=== PATIENT | female | born 1995 | race Caucasian/White ===

== ENCOUNTER 2024-04-03 11:00 | Emergency (ER) | payer MEDICAID, SELFPAY ==
[2024-04-03 11:03] VITALS: BP 120/69; PULSE 77; RESP 12; TEMP 36.7; O2SAT 100; BMI 16.9
[2024-04-03 11:18] VITALS: BP 120/69; RESP 18; O2SAT 100
[2024-04-03 11:33] LABS: Basophils % 0.2 %; Hematocrit 46.7 % (36-47); Lymphocytes # 1.3 10^3/uL (0.8-4.8); Lymphocytes % 11.8 %; Mean Corpuscular HGB Conc 33.2 g/dL (30-55); Mean Corpuscular Hemoglobin 27.8 pg (27-33); Mean Corpuscular Volume 83.7 fl (85-98); Mean Platelet Volume 10.7 fL (7.4-10.4); Monocytes # 0.7 10^3/uL (0.2-0.9); Monocytes % 6.3 %; Neutrophils # 8.78 10^3/uL (1.8-7.7); Neutrophils % 81.4 %; Nucleated Red Blood Cells % 0 %; Platelet Count 194 10^3/cmm (157-399); Red Blood Count 5.58 10^6/uL (3.85-5.65); Red Cell Distribution Width 12.7 % (12.1-15.1); White Blood Count 10.78 10^3/uL (3.29-11.43)
[2024-04-03] MEDS: ondansetron 2 mg/ML SDV 2 mL 4 MG IVP (11:33)
[2024-04-03] MEDS: sodium chloride 0.9% 1,000 ML 999 ML IV (11:33)
--- NOTE | 2024-04-03 11:55 | ED_ITS ---
HPI - Weakness 2 General: Chief complaint: Weakness Stated complaint: chest pain, sunburn Time Seen by Provider: 04/03/24 11:11 History of Present Illness: This patient is a 29-year-old presenting with bodyaches, malaise, nausea and vomiting. She reports that she [place] on the river yesterday and got a severe sunburn. She took some Tylenol last night because of the sunburn pain. She also did not feel very well last night. She thinks that she did not drink enough water yesterday. She denies alcohol or drug use. She is in recovery for 2 years. She denies any other significant medical history such as diabetes. She denies any recent medication changes, no recent trauma. She denies diarrhea. No urinary symptoms. She has irregular menstrual periods and cannot recall the last time she had a cycle. PFSH ED 2 PFSH: Social History Smoking and tobacco/nicotine status: current every day tobacco/nicotine user cigarettes Packs smoked per day: 0.25 Years cigarettes smoked: 12 Quit status (tobacco/nicotine): has tried quititng Number of times tried to quit tobacco: 3 Second hand smoke exposure: No Physical Exam 2 Const: COMMON NORMALS: patient oriented x3, no limitations and alert G ENERAL APPEARANCE: cooperative and other (Uncomfortable); not well hydrated HENMT: HEAD & SCALP: normal to inspection FACE & SINUS: normal facial exam Eye: GENERAL EYE: appearance normal, both eyes and all related structures Neck/C-Spine: COMMON NORMALS: supple, no meningeal signs and no JVD Chest: COMMONS NORMALS: normal inspection of the chest Resp: COMMON NORMALS: normal respiratory effort, No use of accessory muscles and clear to auscultation bilaterally AUSCULTATION: clear to auscultation bilaterally Cardio: COMMON NORMALS: no JVD, regular rate, regular rhythm and No murmurs present (Cardio) RATE: regular rate RHYTHM: regular rhythm GI: COMMON NORMALS: Normal to inspection, nondistended, normoactive bowel sounds present, Soft to palpation and non-tender INSPECTION: Yes normal to inspection AUSCULTATION: Yes normoactive bowel sounds PALPATION: Yes Soft to palpation Back/Pelvis: COMMON NORMALS: thoracic and lumbar spine normal to inspection Extremity: COMMON NORMALS: normal to inspection Neuro: COMMON NORMALS: patient oriented x3, moves all extremities, no focal motor deficits and no sensory deficits noted SENSORIUM/ORIENTATION: Yes alert MENINGEAL SIGNS: Yes no meningeal signs Psych: COMMON NORMALS: mental status grossly normal, cooperative and normal affect Skin: COMMON NORMALS: no rashes or lesions noted and turgor normal N ARRATIVE SKIN EXAM: Sunburn on the shoulders and back, legs, face. No blistering noted GENERAL SKIN EXAM: no rashes or lesions noted and turgor normal Course 2 Vital Signs: Vital signs: Vital Signs Temperature 98.1 F 04/03/24 11:03 Pulse Rate 63 04/03/24 12:13 Respiratory Rate 18 04/03/24 12:13 Blood Pressure 105/80 04/03/24 12:13 Pulse Oximetry 99 04/03/24 12:13 Oxygen Delivery Me thod Room Air 04/03/24 12:13 MDM - Weakness Medical Decision Making Patient with exposure to heat and sun yesterday. She does not think she drink enough water. She has had vomiting today. Potential for heatstroke, less likely rhabdomyolysis. Clinically dehydrated and will give IV fluids. She reports no substance abuse however alcohol and drug screen have been ordered. test also ordered. Will rule out concerning diagnoses and treat symptomatically. Lab Data 04/03/24 11:27 04/03/24 11:27 Laboratory Results WBC 10.78 10^3/uL (3.29-11.43) 04/03/24 11:27 RBC 5.58 10^6/uL (3.85-5.65) 04/03/24 11:27 Hgb 15.50 g/dL (11.27-16.99) 04/03/24 11:27 Hct 46.7 % (36-47) 04/03/24 11:27 MCV 83.7 fl (85-98) L 04/03/24 11:27 MCH 27.8 pg (27-33) 04/03/24 11:27 MCHC 33.2 g/dL (30-55) 04/03/24 11:27 RDW 12.7 % (12.1-15.1) 04/03/24 11:27 Plt Count 194 10^3/cmm (157-399) 04/03/24 11:27 MPV 10.7 fL (7.4-10.4) H 04/03/24 11:27 Neut % (Auto) 81.4 % 04/03/24 11:27 Lymph % (Auto) 11.8 % 04/03/24 11:27 [place] % (Auto) 6.3 % 04/03/24 11:27 Eos % (Auto) 0.0 % 04/03/24 11:27 Baso % (Auto) 0.2 % 04/03/24 11:27 Neut # (Auto) 8.78 10^3/uL (1.8-7.7) H 04/03/24 11:27 Lymph # (Auto) 1.3 10^3/uL (0.8-4.8) 04/03/24 11:27 [place] # (Auto) 0.7 10^3/uL (0.2-0.9) 04/03/24 11:27 Eos # (Auto) 0.0 10^3/uL (0.0-0.8) 04/03/24 11:27 Baso # (Auto) 0.0 10^3/uL (0.0-0.1) 04/03/24 11:27 Nucleated RBC % (auto) 0 % 04/03/24 11:27 Nucleated RBCs # 0.0 /100WBC 04/03/24 11:27 Sodium 137 mmol/L (136-145) 04/03/24 11:27 Potassium 4.5 mmol/L (3.5-5.1) 04/03/24 11:27 Chloride 101 mmol/L (98-107) 04/03/24 11:27 Carbon Dioxide 26 mmol/L (22-29) 04/03/24 11:27 Anion Gap 14.5 (5-19) 04/03/24 11:27 BUN 14 mg/dL (6-20) 04/03/24 11:27 Creatinine 0.7 mg/dL (0.5-0.9) 04/03/24 11:27 GFR Calculation 98.9 mL/min (90-130) 04/03/24 11:27 Glucose 93 mg/dL (65-115) 04/03/24 11:27 Calculated Osmolality 284 mOsm/kg (285-295) L 04/03/24 11:27 Calcium 9.9 mg/dL (8.5-10.5) 04/03/24 11:27 Total Bilirubin 1.1 mg/dL (0.15-1.2) 04/03/24 11:27 AST 26 U/L (0-32) 04/03/24 11:27 ALT 15 U/L (0-33) 04/03/24 11:27 Alkaline Phosphatase 69 U/L (35-105) 04/03/24 11:27 Creatine Kinase 263 U/L (26-192) H 04/03/24 11:27 Total Protein 7.9 g/dL (6.6-8.7) 04/03/24 11:27 Albumin 5.1 g/dL (3.5-5.2) 04/03/24 11:27 Globulin 2.8 g/dL (1.3-4.6) 04/03/24 11:27 Lipase 21 U/L (13-60) 04/03/24 11:27 TSH 0.56 uIU/mL (0.27-4.20) 04/03/24 11:27 HCG, Qual Negative (Negative) 04/03/24 12:45 Urine Color Dark yellow (Yellow) 04/03/24 12:45 Urine Appearance Clear (CLEAR) 04/03/24 12:45 Urine pH 5 (5-7) 04/03/24 12:45 Ur Specific [place] 1.025 (1.005-1.030) 04/03/24 12:45 Urine Protein Trace (Negative) 04/03/24 12:45 Urine Glucose (UA) Norm (Normal) 04/03/24 12:45 Urine Ketones 1+ (Negative) H 04/03/24 12:45 Urine Blood Neg (Negative) 04/03/24 12:45 Urine Nitrate Negative (Negative) 04/03/24 12:45 Urine Bilirubin Neg (Negative) 04/03/24 12:45 Urine Urobilinogen 1 mg/dL (Negative) H 04/03/24 12:45 Ur Leukocyte Esterase Negative (Negative) 04/03/24 12:45 Urine RBC None /hpf (0-2) 04/03/24 12:45 Urine WBC 5-10 /hpf (0-5) H 04/03/24 12:45 Ur Squamous Epith Cells 10-15 /hpf (0-5) H 04/03/24 12:45 Amorphous Sediment Not Reportable 04/03/24 12:45 Urine Bacteria 1+ /hpf (NONE) H 04/03/24 12:45 Urine Mucus 2+ /hpf 04/03/24 12:45 Salicylates < 0.3 mg/dL (3-10) L 04/03/24 11:27 Urine Opiates Screen Negative ng/mL (Negative) 04/03/24 12:45 Acetaminophen < 5.0 ug/mL (10-30) L 04/03/24 11:27 Ur Barbiturates Screen Negative ng/mL (Negative) 04/03/24 12:45 Ur Phencyclidine Scrn Negative ng/mL (Negative) 04/03/24 12:45 Ur Amphetamines Screen Negative ng/mL (Negative) 04/03/24 12:45 U Benzodiazepines Scrn Negative ng/mL (Negative) 04/03/24 12:45 Urine Cocaine Screen Negative ng/mL (Negative) 04/03/24 12:45 U Marijuana (THC) Screen Negative ng/mL (Negative) 04/03/24 12:45 No radiology studies performed this visit Discharge Plan Discharge Patient Disposition: Home Clinical Impression: Dehydration, Sunburn, Heat effect Condition: Stable Prescriptions: No Action buprenorphine-naloxone 2-0.5 mg tablet, sublingual 1 tab sublingual DAILY mirtazapine 15 mg tablet 15 mg PO DAILY clonidine HCl 0.1 mg tablet 0.1 mg PO BID baclofen 10 mg tablet 10 mg PO TID hydroxyzine HCl 50 mg tablet 50 mg PO QID PRN sertraline [Zoloft] 100 mg tablet 100 mg PO DAILY Qty: 30 1RF Rx Instructions: Take 1/2 tab daily for 10 days then start a full tab daily levofloxacin 750 mg tablet 750 mg PO DAILY 7 Days Qty: 7 0RF albuterol sulfate 90 mcg/actuation HFA aerosol inhaler 2 inh inhalation Q4H PRN (Reason: shortness of breath or wheezing) Qty: 8.5 0RF guaifenesin 1,200 mg tablet extended release 12hr 1,200 mg PO BID PRN (Reason: cough) Qty: 30 0RF Discharge Orders: Discharge ED (Routine); Ordered 04/03/24 Ordered By: Almita Thompson Referrals: Azam Rogers FNP [Family Provider] - Patient Instructions: Opioid Safety, Pain Management Activity Restrictions/Additional Instructions: Drink plenty of fluids. Be careful about prolonged heat exposure. Coding Level of Care Code ED Manufacturing Tech for Ana Singletary
[2024-04-03 12:03] LABS: Alanine Aminotransferase 15 U/L (0-33); Albumin Level 5.1 g/dL (3.5-5.2); Alkaline Phosphatase 69 U/L (35-105); Anion Gap 14.5 (5-19); Aspartate Amino Transferase 26 U/L (0-32); Blood Urea Nitrogen 14 mg/dL (6-20); Calcium 9.9 mg/dL (8.5-10.5); Carbon Dioxide 26 mmol/L (22-29); Chloride 101 mmol/L (98-107); Creatine Phosphokinase 263 U/L (26-192); Creatinine Clr Calc Pharmacy 71.3279; Globulin 2.8 g/dL (1.3-4.6); Glomerular Filtration Rate 98.9 mL/min (90-130); Glucose 93 mg/dL (65-115); Lipase 21 U/L (13-60); Osmolality Calculated 284 mOsm/kg (285-295); Potassium 4.5 mmol/L (3.5-5.1); Sodium 137 mmol/L (136-145); Thyroid Stimulating Hormone 0.56 uIU/mL (0.27-4.20); Total Bilirubin 1.1 mg/dL (0.15-1.2); Total Protein 7.9 g/dL (6.6-8.7)
[2024-04-03 12:10] LABS: Acetaminophen < 5.0 ug/mL (10-30); Salicylate < 0.3 mg/dL (3-10)
[2024-04-03 12:13] VITALS: BP 105/80; PULSE 63; RESP 18; O2SAT 99
[2024-04-03 13:14] LABS: Amphetamines Screen Urine Negative (Negative); Barbiturates Screen Urine Negative (Negative); Benzodiazepines Screen Urine Negative (Negative); Cocaine Screen Urine Negative (Negative); Opiate Screen Urine Negative (Negative); PCP Screen Urine Negative (Negative); THC Screen Urine Negative (Negative)
[2024-04-03 13:17] LABS: HCG Qualitative Urine. Negative (Negative)
[2024-04-03 13:26] LABS: Add Urine Microscopic? YES; Bilirubin Urine Neg (Negative); Blood Urine Neg (Negative); Glucose Urine UA Norm (Normal); Ketones Urine 1+ (Negative); Leukocyte Esterase Urine Negative (Negative); Nitrate Urine Negative (Negative); Protein Urine Trace (Negative); Specific Gravity, Urine 1.025 (1.005-1.030); Urine Appearance Clear (CLEAR); Urine Color Dark Yellow (Yellow); Urobilinogen Urine 1 mg/dL (Negative); pH Urine 5 (5-7)
[2024-04-03 13:27] LABS: Add Urine Culture? No; Bacteria Urine 1+ /hpf; Mucus Urine 2+ /hpf
== END 2024-04-03 14:20 | disposition home or self-care (01) ==
PROVIDERS: Emergency Provider Emergency Medicine
DX: E86.0 Dehydration (principal); L55.9 Sunburn, unspecified; T67.9XXA Effect of heat and light, unspecified, initial encounter; X30.XXXA Exposure to excessive natural heat, initial encounter; F17.210 Nicotine dependence, cigarettes, uncomplicated
CPT/HCPCS: 80053; 80306; 80307; 81001; 81025; 82550; 83690; 84443; 85025; 96374; 99284; J2405; J7030

== ENCOUNTER → 2024-05-19 10:30 | Outpatient (BNVA) | payer MEDICAID, SELFPAY | PROVIDERS: Visit Provider Nurse Practitioner Women's Health | DX: Z00.00 Encounter for general adult medical examination without abnormal findings (principal) | CPT/HCPCS: 82306; 83520; 84146; 84439; 84443; 84481; 86850; 86900; 87624 ==

== ENCOUNTER 2025-06-28 16:05 | Emergency (ER) | payer SELFPAY ==
[2025-06-28 16:18] VITALS: BP 106/74; PULSE 82; RESP 16; TEMP 36.8; O2SAT 98
--- NOTE | 2025-06-28 16:20 | ECG_ITS ---
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 Measurements Intervals [place] Rate: 83 P: 87 [place]: 125 QRS: 75 QRSD: 77 T: 65 QT: 401 QTc: 472 Interpretive Statements SINUS RHYTHM RIGHT ATRIAL ENLARGEMENT [0.3mV P-WAVE] NONSPECIFIC T-WAVE ABNORMALITY No previous ECG available for comparison Electronically Signed On 06-28-2025 23:53:43 CDT by Bruce Starr M.D. [id number]
--- NOTE | 2025-06-28 16:39 | PC.NURSE ---
COWS scoring for Opiate Withdrawal: 5 (mild withdrawal). provider notified
--- NOTE | 2025-06-28 17:17 | W.ED.PSYCHS ---
HPI - Psych General: Chief Complaint: Psychiatric Symptoms Stated Complaint: Medication/Detoxs Time Seen by Provider: 06/28/25 16:09 History of Present Illness: 30yo with a chief complaint of withdrawal symptoms. Patient states that she quit her Suboxone cold turkey 1 week ago. Patient admits to being an addict and abusing amphetamines, fentanyl, heroin and other substances but states that she has been successfully on Suboxone for years and would like to now completely discontinue Suboxone. She states she gets her prescription from [facility]. She states that she is experiencing generalized body aches, abdominal cramping, nausea and diarrhea. She states she has not been able to sleep. She denies fever, chest pain, shortness of breath, syncope, vomiting, dysuria, hematuria or possibility of . Related Data Home Medications ?Medication ?Instructions ?Recorded ?Confirmed buprenorphine 2 mg-naloxone 0.5 mg 1 tab sublingual DAILY 01/08/22 05/23/25 sublingual tablet clonidine HCl 0.1 mg tablet 0.1 mg PO BID 01/08/22 05/23/25 hydroxyzine HCl 50 mg tablet 50 mg PO QID PRN 01/08/22 05/23/25 mirtazapine 15 mg tablet 15 mg PO DAILY 01/08/22 05/23/25 trazodone 50 mg tablet 25 mg PO DAILY 05/19/24 05/23/25 Previous Rx's ?Medication ?Instructions ?Recorded sertraline 100 mg tablet (Zoloft) 100 mg PO DAILY #30 tabs 03/04/22 albuterol sulfate 90 mcg/actuation 2 inh inhalation Q4H PRN shortness 07/28/22 aerosol inhaler of breath or wheezing #8.5 grams guaifenesin 1,200 mg tablet, 1,200 mg PO BID PRN cough #30 tabs 07/28/22 extended release 12 hr azithromycin 500 mg tablet See Rx Instructions PO .COMPLEX #3 05/23/24 tabs buprenorphine 2 mg-naloxone 0.5 mg 1 film buccal DAILY PRN mild 06/28/25 sublingual film (Suboxone) withdrawal 3 days #3 ea ondansetron HCl 4 mg tablet 4 mg PO Q8H 5 days #15 tabs 06/28/25 Allergies Allergy/AdvReac Type Severity Reaction Status Date / Time No Known Allergies Allergy Verified 05/23/25 13:49 PFSH ED PFSH: Family History Father Diabetes Stroke Denies family history of Ovarian cancer Prostate cancer Heart disease Breast cancer Hypertension Uterine cancer Thyroid disease Social History Smoking and tobacco/nicotine status: current every day tobacco/nicotine user Physical Exam Narrative: EXAM NARRATIVE: Vital signs were reviewed. Patient is alert and oriented. Patient is breathing comfortably, no increased WOB or accessory muscle use. SpO2 is above 95% on RA. No hypotension or tachycardia. Abdomen is soft, nondistended nontender. Patient is moving all extremities, no deformity or gross injury. Course Vital Signs: Vital signs: Vital Signs Temperature 98.3 F 06/28/25 16:18 Pulse Rate 82 06/28/25 16:18 Respiratory Rate 16 06/28/25 16:18 Blood Pressure 106/74 06/28/25 16:18 Pulse Oximetry 98 06/28/25 16:18 Oxygen Delivery Me thod Room Air 06/28/25 16:18 MDM - Psych Medical Decision Making 30-year-old female with a chief complaint of withdrawal symptoms since she discontinued Suboxone last week. Differential diagnosis includes but is not limited to, mild versus moderate versus severe withdrawal. On exam, patient is hemodynamically stable and does not appear toxic. She has a COWS score of 5 which indicates mild withdrawal. She was offered a couple of days of Suboxone at a lower dose, she states that previously she was taking 5 mg. She is amenable to following up with [facility]. Patient was counseled on supportive care at home, given return precautions and discharged in stable condition. No radiology studies performed this visit Discharge Plan Discharge Patient Disposition: Home Clinical Impression: Opioid withdrawal Condition: Stable Prescriptions: New buprenorphine-naloxone [Suboxone] 2-0.5 mg film 1 film buccal DAILY PRN (Reason: mild withdrawal) 3 Days Qty: 3 0RF Rx Instructions: place 1 strip/tab under (each) side of tongue ondansetron HCl 4 mg tablet 4 mg PO Q8H 5 Days Qty: 15 0RF No Action buprenorphine-naloxone 2-0.5 mg tablet, sublingual 1 tab sublingual DAILY mirtazapine 15 mg tablet 15 mg PO DAILY clonidine HCl 0.1 mg tablet 0.1 mg PO BID hydroxyzine HCl 50 mg tablet 50 mg PO QID PRN sertraline [Zoloft] 100 mg tablet 100 mg PO DAILY Qty: 30 1RF Rx Instructions: Take 1/2 tab daily for 10 days then start a full tab daily albuterol sulfate 90 mcg/actuation HFA aerosol inhaler 2 inh inhalation Q4H PRN (Reason: shortness of breath or wheezing) Qty: 8.5 0RF guaifenesin 1,200 mg tablet extended release 12hr 1,200 mg PO BID PRN (Reason: cough) Qty: 30 0RF trazodone 50 mg tablet 25 mg PO DAILY azithromycin 500 mg tablet See Rx Instructions PO .COMPLEX Qty: 3 0RF Rx Instructions: For 500 mg dose pack: take 500 mg once daily for 3 days PO Discharge Orders: Discharge ED (Routine); Ordered 06/28/25 Ordered By: Dara Markham Patient Instructions: Opioid Safety, Pain Management, Patient Portal & [place] Instructions Activity Restrictions/Additional Instructions: Please continue to monitor your condition closely at home. Take Ibuprofen 400mg and Tylenol 500-1000mg every six hours for pain and inflammation. For nausea and vomiting you may take a Zofran. To stay hydrated. For the next 3 days, you may use a lower dose of Suboxone. If your condition worsens or additional concerns arise, please return promptly to the emergency department for reassessment. Follow up with your explosive ordnance specialist at [facility] for further prescription for suboxone. Print Language: Nigerien Coding Level of Care Code ED Tailor Helper for Ana Singletary
[2025-06-28 17:33] VITALS: PULSE 60; O2SAT 98
[2025-06-28] MEDS: buprenorphine-naloxone 4-1 mg Film 1 EACH SUBLINGUAL (17:33)
== END 2025-06-28 17:34 | disposition home or self-care (01) ==
PROVIDERS: Emergency Provider Emergency Medicine
DX: F11.23 Opioid dependence with withdrawal (principal); T40.2X5A Adverse effect of other opioids, initial encounter; X58.XXXA Exposure to other specified factors, initial encounter; Z72.0 Tobacco use
CPT/HCPCS: 93005; 99283; J0573